=== PATIENT | female | born 1980 | race Two or more races ===

== ENCOUNTER 2020-05-15 05:07 | Day surgery (SDC) | payer OTHER ==
[~2020-05-15] VITALS: Ht 157.5 cm; Wt 68.0 kg
[2020-05-15] MEDS ORDERED: PRENATALES (05:21)
== END 2020-05-16 18:30 | disposition home or self-care (01) ==
LOC: ER 05:07 → CIR.AMB 05-16 09:39
PROVIDERS: ATTEND Obstetrics & Gynecology
DX: O03.4 Incomplete spontaneous abortion without complication (principal); Z20.828 Contact with and (suspected) exposure to other viral communicable diseases

== ENCOUNTER 2020-11-30 08:00 | Inpatient (IN) | payer OTHER ==
[~2020-11-30] VITALS: Ht 157.5 cm; Wt 72.6 kg
[~2020-11-30 08:00] MED LIST: PRENATALES
[2020-12-06] MEDS ORDERED: GABAPENTIN300 MG PO (07:16)
[2020-12-06] MEDS ORDERED: IBUPROFEN800 MG PO (07:17)
== END 2020-12-06 12:48 | disposition home or self-care (01) | DRG 743 ==
LOC: OB/GYN 12-04 06:00 → O/R 12-04 06:00 → SURH 12-04 07:00 → OB/GYN 12-04 10:48
PROVIDERS: ADMIT Obstetrics & Gynecology Gynecology; ATTEND Obstetrics & Gynecology Gynecology
PROC: 0UB70ZZ Excision of Bilateral Fallopian Tubes, Open Approach (ICD-10-PCS; 2020-12-04)
PROC: 0USG0ZZ Reposition Vagina, Open Approach (ICD-10-PCS; 2020-12-04)
PROC: 0UT90ZZ Resection of Uterus, Open Approach (ICD-10-PCS; principal; 2020-12-04 07:00)
DX: N72 Inflammatory disease of cervix uteri (principal); N80.0 Endometriosis of uterus; D25.1 Intramural leiomyoma of uterus; N92.1 Excessive and frequent menstruation with irregular cycle; D64.9 Anemia, unspecified; R10.2 Pelvic and perineal pain; Z20.822 Contact with and (suspected) exposure to COVID-19

== ENCOUNTER 2021-01-06 14:09 | Emergency (ER) | payer OTHER ==
[~2021-01-06] VITALS: Ht 157.5 cm; Wt 72.6 kg
[~2021-01-06 14:09] MED LIST changes: +GABAPENTIN300 MG PO; +IBUPROFEN800 MG PO
== END 2021-01-06 18:07 | disposition home or self-care (01) ==
LOC: ER 14:09
DX: T81.41XA Infection following a procedure, superficial incisional surgical site, initial encounter (principal); B99.8 Other infectious disease; B95.61 Methicillin susceptible Staphylococcus aureus infection as the cause of diseases classified elsewhere; B96.89 Other specified bacterial agents as the cause of diseases classified elsewhere; O90.2 Hematoma of obstetric wound; R65.20 Severe sepsis without septic shock